=== PATIENT | male | born 1955 | race Caucasian/White ===

== ENCOUNTER → 2018-02-22 | Day surgery (SDC) | payer OTHER, MEDICARE ==
[~2018-02-22] VITALS: Ht 182.9 cm; Wt 107.0 kg
[~2018-02-22] MED LIST: ALLOPURINOL300 MG PO; AMLODIPINE BES2.5 MG PO; B12 1MG PE1000 MCG/M IM; BLACK CHERRY EXTRACT PO; CARDIZEM CD 12120 MG PO; CIPRO500 M1 PO; CRESTOR20 M1 PO; DILAUDID4 M1 PO; ELIQUIS5 MG PO; FLOMAX0.4 M1 PO; GEMFIBROZIL600 MG PO; GLUCOSAMINE & C1 CAP PO; HYDROMORPHONE HY4 MG PO; LISINOPRIL40 MG PO; LOPRESSOR50 MG PO; MASON NATURAL1200 MG PO; METFORMIN HCL500 MG PO; METOPROLOL TART50 MG PO; PRESERVISION AR1 SGL PO; VICTOZA6 MG/ML SC; VITAMIN D1000 IU PO
--- NOTE | 2018-02-22 11:16 | Operative Report ---
Operative/Inv Procedure Report Surgery Date: 02/22/18 Name of Procedure: left ESWL with stent placement Pre-Operative Diagnosis: left renal stone 1.1cm Post-Operative Diagnosis: same Estimated Blood Loss: scant Surgeon/Circulation Supervisor: Thalia Banks MD Anesthesia: local monitored anesthesi Drains: 6x26cm stent Complications: none Condition: stable Operative Indication: left renal stone with renal colic Operative/Procedure Note Note: 62yo male with a 25yr long hx of kidney stones due to medullary sponge kidney/ nephrocalcinosis. He has excruciating pain from the spasms when he is passing a stone. He has a gallon sized bag full of stones. His stone analysis in the past shows he forms Ca Ox stones. He has never been treated with po meds for this. He does drink a fair amount of fluids (minute maid lemonade) and a little bit of diet soda. He had not been feeling well for some time with lethargy, weakness, all over body aches. He was not sure if any of his meds were causing these symptoms and on the advice of his sister he discontinued lasix, Kcit, and rosuvastatin. He felt a little better with this. He had the renal CT which showed bilateral kidney stones with the largest one on the left measuring 1.1cm with smaller ones throughout both kidneys. He is desperate for improvement. He was given the risks, benefits and alternatives to the left ESWL with stent placement. All questions were answered. Consent was signed with his present. Patient was brought to the operating room and placed on the table in the supine position. Time out was performed. IV kefzol was started. Patient was placed into the dorsal lithotomy position and prepped and draped in the standard sterile fashion. Cystoscopy was performed and the left ureteral orifice was easily found. This was cannulated with the Solo Bard guidewire. A 6x26cm stent was placed over it and the wire was removed when in good position. The bladder was drained. He was put back in the supine position. ESWL was started after IV sedation was given adequately and the 1.1 cm stone was located in the midpole pole. The shockwaves were started at a power of 10 for 100 shocks, then power of 11 for 100 shocks, then power of 12 for 100 shocks, then power of 13 for 100 shocks and finally power of 20 for 2100 shocks. Patient tolerated the procedure well. The 1.1cm stone was visibly changed at the end of the procedure. Patient was transferred to [facility] in stable condition. Findings: left renal stone 1.1cm stone with stent in good position Discharge Disposition: Same Day Admissions
== END ==
LOC: STS 02:15
DX: N20.0 Calculus of kidney (principal); Z87.442 Personal history of urinary calculi; E83.59 Other disorders of calcium metabolism; N29 Other disorders of kidney and ureter in diseases classified elsewhere; I48.91 Unspecified atrial fibrillation; Z79.01 Long term (current) use of anticoagulants; E11.40 Type 2 diabetes mellitus with diabetic neuropathy, unspecified; Z79.84 Long term (current) use of oral hypoglycemic drugs; I10 Essential (primary) hypertension
CPT/HCPCS: C2617; J0690; J2250